=== PATIENT | female | born 1965 | race African-American/Black ===

== ENCOUNTER → 2017-02-19 | Outpatient (CLI) | payer BC ==
[2014-08-07 14:39] VITALS: BP 120/61
[~2017-02-19] MED LIST: AMOX500C PO; BENZ100C15 PO
--- NOTE | 2017-02-19 16:02 | KCIC ---
Bone mineral density exam History: Back pain, screening Comparison: None Findings: Bone mineral density examination utilizing DEXA was performed. Left hip bone mineral density of 1.029 g/cm2 corresponds with a T score 0.7, Z score 1.2. The bone mineral density of the lumbar spine was 1.144 g/cm2 which corresponds with a T-score of 0.9, Z score 1.7. By World Congress on Osteoporosis criteria, a T score of 0 to-1 SD is considered to be within normal limits. A T score of -1 to -2.5 SD is considered osteopenia. A T score less than -2.5 SD is considered osteoporosis Impression: 1. There is normal bone density of the lumbar spine and the left hip. Electronically signed by: Vinh Mcintyre MD (02/19/2017 3:59 PM) [facility]
--- NOTE | 2017-02-19 16:33 | KCIC ---
EXAM: Bilateral screening mammogram. HISTORY: 51-year-old female presents for screening mammography. TECHNIQUE: Full-field digital craniocaudal and mediolateral oblique standard and breast implant displaced views of both breasts are obtained for evaluation. Computer aided detection with Double FusionD software version 9.3 was applied. COMPARISON: 11/15/2013 BREAST PARENCHYMAL DENSITY: Level C - Heterogeneously dense. FINDINGS: There is no new suspicious mass, microcalcification or region of architectural distortion. There is a biopsy clip within the 10:00 position of the right breast. There are unremarkable breast implants. IMPRESSION: BI-RADS Category 2: Benign finding(s). RECOMMENDATION: Annual mammography is recommended. If your mammogram demonstrates that you have dense breast tissue, which could hide abnormalities, and if you have other risk factors for breast cancer that have been identified, you might benefit from supplemental screening tests that may be suggested by your ordering physician. Dense breast tissue, in and of itself, is a relatively common condition. This information is not provided to cause undue concern, but rather to raise your awareness and to promote discussion with your physician regarding the presence of other risk factors, in addition to dense breast tissue. A report of your mammography results will be sent to you and your physician. You should contact your physician if you have any questions or concerns regarding this report. Mammography is a sensitive method for finding small breast cancers, but it does not detect them all and is not a substitute for careful clinical examination. A negative mammogram does not negate a clinically suspicious finding and should not result in delay in biopsying a clinically suspicious abnormality. PQRS compliance statement - Patient information was entered into a reminder system with a target due date for the next mammogram. "Our facility is accredited by the [employer] Mammography [employer]." Electronically signed by: Katt Jones MD (02/19/2017 4:28 PM) [id number]
== END | disposition home or self-care (01) ==
LOC: KCIC DEXA 14:44
PROVIDERS: ATTEND Internal Medicine
DX: Z12.31 Encounter for screening mammogram for malignant neoplasm of breast (principal); M81.0 Age-related osteoporosis without current pathological fracture; M85.89 Other specified disorders of bone density and structure, multiple sites
CPT/HCPCS: 77080; G0202; 77067

== ENCOUNTER → 2018-02-28 | Outpatient (CLI) | payer BC, OTHER ==
[2014-08-07 14:39] VITALS: BP 120/61
[~2018-02-28] MED LIST changes: +BENZ-8 PO; -BENZ100C15 PO
--- NOTE | 2018-02-28 17:18 | KCIC ---
Bilateral digital screening mammograms: Reason for examination: Routine screening. Comparison is made to previous studies dated 02/19/2017 and 11/15/2013. Interpretation was made with the benefit of CAD. The skin and nipples show no abnormalities. No abnormal axillary lymph nodes are seen. Bilateral breast implants remain present. The breast parenchyma is heterogeneously dense. (Breast density: Category C.) There are no dominant masses, suspicious calcifications or architectural distortion. Biopsy clip remains present on the right. Impression: No evidence of malignancy. Recommend routine screening. Your patient's mammogram demonstrates that she has dense breast tissue (breast density category C or D), which could hide abnormalities, and if she has other risk factors for breast cancer that have been identified, she might benefit from supplemental screening tests that may be suggested by you as her ordering physician. Dense breast tissue, in and of itself, is a relatively common condition. Therefore, this information is not provided to cause undue concern, but rather to raise your awareness and to promote discussion with your patient regarding the presence of other risk factors, in addition to dense breast tissue. Your patient's mammography results will be sent to her. BI-RAD Category 1: Negative. "Our facility is accredited by the [employer] Mammography Program." This patient's information has been entered into a reminder system for the patient to be notified with the results of her examination and a target date for the next mammogram. Electronically signed by: Haven Bajwa MD (02/28/2018 5:15 PM) [id number]
== END | disposition home or self-care (01) ==
LOC: KCIC MAMMO 16:26
PROVIDERS: ATTEND Internal Medicine
DX: Z12.31 Encounter for screening mammogram for malignant neoplasm of breast (principal)
CPT/HCPCS: 77067

== ENCOUNTER → 2018-11-14 | Outpatient (CLI) | payer OTHER ==
[2014-08-07 14:39] VITALS: BP 120/61
--- NOTE | 2018-11-14 10:45 | KCIC ---
RIGHT LOWER EXTREMITY ULTRASOUND WITH DOPPLER 11/14/2018 8:45 AM Clinical Information: Right leg swelling. Comparison: None. Technique: Multiple grayscale, color Doppler, and spectral Doppler sonographic images of the lower extremity venous structures were obtained. Findings: The right common femoral, femoral, and popliteal veins exhibit normal compression, respiratory phasicity, and augmentation. No intraluminal thrombi are identified. Color Doppler flow is demonstrated in the right posterior tibial and peroneal veins. Greater saphenous vein is patent. Impression: 1. No evidence of deep venous thrombosis. Electronically signed by: Leeann De Leon MD (11/14/2018 10:42 AM) [id number]
== END | disposition home or self-care (01) ==
LOC: KCIC US 08:45
PROVIDERS: ATTEND Nurse Practitioner Adult Health
DX: M79.89 Other specified soft tissue disorders (principal)
CPT/HCPCS: 93971